=== PATIENT | male | born 1940 | race Caucasian/White ===

== ENCOUNTER → 2022-06-25 | Outpatient (CLI) | payer OTHER ==
--- NOTE | 2022-06-25 16:14 | FL ---
EXAMINATION TYPE: FL barium swallow DATE OF EXAM: 06/25/2022 CLINICAL INDICATION: 82-year-old male R13.10, dysphagia, coughing after eating. Episodes of bronchiti s. COMPARISON: None Total Fluoroscopy Time: 1 minute 25 seconds. 39 images obtained. FINDINGS: There are intermittent episodes of either penetration, coating of the vocal folds, and pascual aspirati on. During pascual aspiration, cough reflex is elicited. Otherwise, hypopharyngeal anatomy is preserved. Only a few swallows of thick barium was utilized due to the visualized aspiration. Overall normal course, caliber of the thoracic esophagus. No fixed narrowing. Satisfactory passage of contrast from the esophagus into the stomach. No obvious hiatal hernia, mucosal lesion, or filling d efect is encountered underlying for limitations of a single contrast study. IMPRESSION: 1. The exam was prematurely terminated after pascual aspiration is visualized. Recommend speech patholo gy referral for further evaluation. 2. No discrete anatomic abnormality of the hypopharynx or esophagus.
== END | disposition home or self-care (01) ==
LOC: RADUSWWP 10:47
DX: R13.10 Dysphagia, unspecified (principal); R05.9 Cough, unspecified
CPT/HCPCS: 74220